=== PATIENT | male | born 2000 | race Hispanic/Latino ===

== ENCOUNTER 2025-08-02 20:43 | Emergency (ER) | payer OTHER ==
[2025-08-02 21:26] VITALS: BP 129/69; TEMP 97.6; O2SAT 99
[2025-08-02 21:31] LABS: PLATELET COUNT, AUTOMATED 208 10^3/uL (150-450)
[2025-08-02 21:55] LABS: AMPHETAMINES LEVEL URINE NEGATIVE (NEGATIVE); BARBITURATES URINE NEGATIVE (NEGATIVE); BENZODIAZEPINES URINE NEGATIVE (NEGATIVE); COCAINE METABOLITE URINE NEGATIVE (NEGATIVE); METHADONE URINE NEGATIVE (NEGATIVE)
[2025-08-02 21:56] LABS: CANNABINOIDS URINE NEGATIVE (NEGATIVE); OPIATES URINE NEGATIVE (NEGATIVE); PHENCYCLIDINE URINE NEGATIVE (NEGATIVE)
[2025-08-02 21:58] LABS: ETHYL ALCOHOL (ETHANOL) < 0.003 % (0.000-0.010)
[2025-08-02 21:59] LABS: SALICYLATE LEVEL < 3.0 MG/DL (<30)
[2025-08-02 22:00] LABS: ALT/SGPT 31 U/L (7.0-40); AST/SGOT 26 U/L (<34); CALCIUM LEVEL 8.8 MG/DL (8.5-10.1); CARBON DIOXIDE LEVEL 23 MMOL/L (20-31); CHLORIDE LEVEL 102 MMOL/L (98-107); CREATININE FOR GFR 0.86 MG/DL (0.70-1.30); GLOMERULAR FILTRATION RATE > 90.0 (>60); POTASSIUM SERUM 3.9 MMOL/L (3.5-5.1); SODIUM LEVEL 135 MMOL/L (136-145)
[2025-08-03] MEDS ORDERED: SERT25TA21 PO (00:31)
[2025-08-03] MEDS ORDERED: SULF-8 PO (00:31)
[2025-08-03] MEDS ORDERED: TOLT4CAP3 PO (00:31)
[2025-08-03] MEDS ORDERED: HOME MED LIST COMPLETE! XX SCH (00:35)
== END 2025-08-03 08:42 | disposition home or self-care (01) ==
LOC: M ED 20:43
DX: F19.159 Other psychoactive substance abuse with psychoactive substance-induced psychotic disorder, unspecified (principal); F17.200 Nicotine dependence, unspecified, uncomplicated; F10.10 Alcohol abuse, uncomplicated; Z79.899 Other long term (current) drug therapy